=== PATIENT | female | born 1995 | race Two or more races ===

== ENCOUNTER 2019-01-16 22:32 | Emergency (ER) | payer OTHER ==
[~2019-01-16] VITALS: Ht 165.1 cm; Wt 56.2 kg
[2019-01-17] MEDS ORDERED: PRENATAL TABLE1 EAC1 PO (06:46)
== END 2019-01-17 06:00 | disposition designated cancer center or children's hospital (05) ==
LOC: ER 22:32 → EDBD 22:45 → ER 01-17 06:00
DX: O26.892 Other specified pregnancy related conditions, second trimester (principal); R10.2 Pelvic and perineal pain; Z34.82 Encounter for supervision of other normal pregnancy, second trimester

== ENCOUNTER 2019-01-17 06:27 | Outpatient (CLI) | payer OTHER ==
[2019-01-17] MEDS ORDERED: PRENATAL TABLE1 EAC1 PO (06:46)
== END 2019-01-17 14:21 | disposition home or self-care (01) ==
LOC: OBS/DEL 06:27
DX: O26.892 Other specified pregnancy related conditions, second trimester (principal); R10.2 Pelvic and perineal pain; O60.02 Preterm labor without delivery, second trimester; O35.8XX0 Maternal care for other (suspected) fetal abnormality and damage, not applicable or unspecified

== ENCOUNTER 2019-06-10 07:51 | Inpatient (IN) | payer OTHER ==
[~2019-06-10] VITALS: Ht 165.1 cm; Wt 3.2 kg
[~2019-06-10 07:51] MED LIST: PRENATAL TABLE1 EAC1 PO
== END 2019-06-13 13:59 | disposition home or self-care (01) | DRG 785 ==
LOC: OB/GYN 07:51 → LDR 07:51 → OB/GYN 15:49
PROVIDERS: ADMIT Obstetrics & Gynecology
PROC: 0UB70ZZ Excision of Bilateral Fallopian Tubes, Open Approach (ICD-10-PCS; 2019-06-10)
PROC: 4A1HXFZ Monitoring of Products of Conception, Cardiac Rhythm, External Approach (ICD-10-PCS; 2019-06-10)
PROC: 10D00Z1 Extraction of Products of Conception, Low, Open Approach (ICD-10-PCS; principal; 2019-06-10 13:15)
DX: O34.211 Maternal care for low transverse scar from previous cesarean delivery (principal); Z3A.39 39 weeks gestation of pregnancy; Z30.2 Encounter for sterilization; Z37.0 Single live birth

== ENCOUNTER 2024-05-06 07:31 | Outpatient (CLI) | payer OTHER | END 2024-05-06 07:37 | disposition home or self-care (01) | LOC: SONOGRAMA 07:31 | PROVIDERS: ATTEND Internal Medicine | DX: R10.13 Epigastric pain (principal) ==